=== PATIENT | female | born 1965 | race Caucasian/White ===

== ENCOUNTER 2016-09-09 16:21 | Day surgery (SDC) | payer OTHER ==
[2016-09-08 18:14] VITALS: BMI 43.2
[2016-09-09 17:06] VITALS: TEMP 98
[2016-09-09 18:21] VITALS: BP 103/59; PULSE 70
== END 2016-09-09 18:10 | disposition home or self-care (01) ==
LOC: JASU-SURG 16:21
PROVIDERS: ATTEND Physical Medicine & Rehabilitation
PROC: 3E0S33Z Introduction of Anti-inflammatory into Epidural Space, Percutaneous Approach (ICD-10-PCS; principal; 2016-09-09)
DX: Z53.8 Procedure and treatment not carried out for other reasons (principal)
CPT/HCPCS: 84703